=== PATIENT | female | born 2000 | race Caucasian/White ===

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

== ENCOUNTER 2018-01-17 09:32 | Outpatient (CLI) | payer MEDICAID ==
[2018-01-17] MEDS ORDERED: ACETAMINOPHEN 325 MG TABLET PO PRN (09:54)
[2018-01-17 10:30] LABS: APPEARANCE,URINE CLEAR; BILIRUBIN,URINE NEGATIVE (NEGATIVE); COLOR,URINE STRAW; GLUCOSE, URINE NEGATIVE (NEGATIVE); KETONES,URINE NEGATIVE (NEGATIVE); LEUKOCYTE ESTERASE,URINE NEGATIVE (NEGATIVE); NITRITE,URINE NEGATIVE (NEGATIVE); PROTEIN,URINE NEGATIVE (NEGATIVE); URINE SPECIFIC GRAVITY 1.006; UROBILINOGEN,URINE NEGATIVE mg/dL (<2.0)
[2018-01-17 10:49] LABS: URINE AMPHETAMINES SCREEN NEGATIVE; URINE BARBITURATES SCREEN NEGATIVE; URINE BENZODIAZEPINES SCREEN NEGATIVE; URINE COCAINE SCREEN NEGATIVE; URINE MARIJUANA (THC) SCREEN NEGATIVE; URINE METHADONE SCREEN NEGATIVE; URINE PHENCYCLIDINE SCREEN NEGATIVE
[2018-01-17 10:56] LABS: HEMATOCRIT 31.7 % (36.0-47.0); HEMOGLOBIN 11.1 g/dL (12.0-15.5); MEAN CORPUSCULAR HEMOGLOBIN 31.5 pg (27.0-33.4); MEAN CORPUSCULAR HGB CONC 35.2 g/dL (32.0-36.0); MEAN CORPUSCULAR VOLUME 90 fl (80-97); PLATELET COUNT 258 10^3/uL (150-450); RED BLOOD COUNT 3.54 10^6/uL (3.72-5.28); RED CELL DISTRIBUTION WIDTH 12.2 % (11.5-14.0); WHITE BLOOD COUNT 11.1 10^3/uL (4.0-10.5)
[2018-01-17 11:09] LABS: UR PRO/CREAT RATIO RESULT 0.2 mg/mg (0.0-0.2); URINE CREATININE 51.2 mg/dL (16-327); URINE PROTEIN 11.4 mg/dL (<12)
[2018-01-17 11:16] LABS: ALANINE AMINOTRANSFERASE 17 U/L (5-35); ALBUMIN 2.9 g/dL (3.7-5.6); ALKALINE PHOSPHATASE 167 U/L (50-135); ANION GAP 11 (5-19); ASPARTATE AMINO TRANSFERASE 19 U/L (5-30); BILIRUBIN,DIRECT 0.2 mg/dL (0.0-0.4); BILIRUBIN,TOTAL 0.4 mg/dL (0.2-1.3); BLOOD UREA NITROGEN 4 mg/dL (7-20); CALCIUM 8.8 mg/dL (8.4-10.2); CARBON DIOXIDE 18 mmol/L (22-30); CHLORIDE 110 mmol/L (98-107); GLUCOSE 94 mg/dL (75-110); POTASSIUM 3.9 mmol/L (3.6-5.0); SODIUM 139.3 mmol/L (137-145); TOTAL PROTEIN 5.6 g/dL (6.3-8.2); URIC ACID 5.5 mg/dL (2.5-6.2)
--- NOTE | 2018-01-17 13:02 | Non Stress Test Report ---
Non Stress Test Datetime Report Generated by CPN: 01/17/2018 13:02 DEMOGRAPHIC EGA NST: 37.5 INDICATION Indication for Study: Other Indication for Study (NST) Other: PIH workup VITAL SIGNS Temperature - NST: 98.3 Pulse - NST: 94 RESP - NST: 18 NBPSYS NST: 136 NBPDIA NST: 84 MONITORING Monitor Explained: Monitor Explained; Test Explained; Patient Verbalized Understanding; Other Time on Monitor: 01/17/2018 09:43 Time off Monitor: 01/17/2018 12:31 NST Duration: 168 NST INTERVENTIONS NST Interventions: PO Hydration; Reposition Patient Physician Notified NST: J. Montalvo CNM BABY A: [id number] BABY A Movement : Present Contraction Frequency : irritablity FHR Baseline : 130 Accelerations : 15X15 Decelerations : None Variability : Moderate 6-25bpm NST Review: Meets Criteria for Reactive NST NST Review and Verified By : iris hall RN NST Results: Reactive NST REPORT Report Trigger: Send Report
== END 2018-01-17 12:50 | disposition home or self-care (01) ==
LOC: LC 09:32
PROVIDERS: ATTEND Student in an Organized Health Care Education/Training Program
PROC: 4A1HXCZ Monitoring of Products of Conception, Cardiac Rate, External Approach (ICD-10-PCS; principal; 2018-01-17)
DX: O13.3 Gestational [pregnancy-induced] hypertension without significant proteinuria, third trimester (principal); Z3A.37 37 weeks gestation of pregnancy
CPT/HCPCS: 36415; 59025; 80053; 80307; 81001; 82570; 83615; 84156; 84550; 85027

== ENCOUNTER 2018-01-18 11:56 | Inpatient (IN) | payer MEDICAID ==
[2018-01-18] MEDS ORDERED: ACETAMINOPHEN 325 MG TABLET PO ONE (12:24)
[2018-01-18] MEDS ORDERED: ACETAMINOPHEN 325 MG TABLET ONE (12:27)
[2018-01-18] MEDS ORDERED: ACETAMINOPHEN 325 MG TABLET PO PRN (14:19)
[2018-01-18] MEDS ORDERED: DINOPROSTONE 10 MG VAGINAL INSERT.SR PV ONE (14:19)
[2018-01-18] MEDS ORDERED: ZOLPIDEM TARTRATE 5 MG TABLET PO PRN (14:19)
[2018-01-18] MEDS ORDERED: OXYTOCIN/NORMAL SALINE 20 UNIT/1,000 ML RTUINJ IV PRN (14:19)
[2018-01-18] MEDS ORDERED: MAG HYDROX/AL HYDROX/SIMETH SUSP 30 ML UDCUP PO PRN (14:19)
[2018-01-18] MEDS ORDERED: RINGERS SOLUTION,LACTATED 300 ML IV ONE (14:19)
--- NOTE | 2018-01-18 14:19 | Admission Physical ---
Datetime Report Generated by CPN: 01/18/2018 14:18 CURRENT ADMISSION Chief Complaint: Sent from OB Office for Evaluation and Treatment - Please Specify; Other Chief Complaint Other: r/o Pre-eclampsia Indication for Induction: Other Indication for Induction- Other: GHTN Admit Impression : Term, Intrauterine ; Obstetrical Complication Admit Plan: Admit to Unit ALLERGIES Medication Allergies: No Medication Allergies: No Known Allergies (01/18/2018) Latex: No Latex Allergies Food Allergies: N/A Environmental Allergies: N/A OBSTETRICAL HISTORY EDC: 02/02/2018 00:00 : 2 Para: 0 Gestational Diabetes: No Rh Sensitization: No Incompetent Cervix: No JOYCE: No Infertility: No ART Treatment: No Uterine Anomaly: No IUGR: No Hx Previous C/S: No Macrosomia: No Hx Loss/Stillborn: No PIH: No Hx : No Placenta Previa/Abruption: No Depression/PP Depression: Yes PTL/PROM: No Post Hemorrhage: No Current Procedures: Ultrasound Obstetrical History Comments: G1 2016, SAB 6 weeks G2 - Current SEE RECORDS Alcohol: No Marijuana : No Cocaine: No Other Illicit Drugs: No Cigarettes: Never Smoker. 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 Surgery: No Heart Disease: No Hosp/Surgery: Yes Autoimmune Disorder: No Anesthetic Complications: No Kidney Disease: No Abnormal Pap Smear: No Neuro/Epilepsy: No Psychiatric Disorders: No Other Medical Diseases: No Hepatitis/Liver Disease: No Significant Family History: No Varicosities/Phlebitis: No Trauma/Violence : No Thyroid Dysfunction: No Medical History Comments: Surgery on left leg when she was 11 INFECTIOUS HISTORY Gonorrhea: No Genital Herpes: No Chlamydia: No Tuberculosis: No Syphilis: No Hepatitis: No HIV/AIDS Exposure: No Rash or Viral Illness: No HPV: No PHYSICAL EXAM General: Normal HEENT: Normal Neurologic: Normal Thyroid: Normal Heart: Normal Lungs: Normal Breast: Normal Back: Normal Abdomen: Normal Genitourinary Exam: Normal Extremities: Normal DTRs: Normal Pelvic Type: Adequate Vital Signs: Reviewed Details Vital Signs: discussed with Dr Igor VAGINAL EXAM Dilatation: 0 Effacement: 0 Station: -3 MEMBRANES Membranes: Intact FETUS A EGA: 37.6 Monitoring: External US Admit Comment: GHTN with EFW at 10% Will start cervical ripening with Cervidi GBS pending Dr Igor agrees with plan of care INFORMED CONSENT Assignment: Delmy Costa MD Signature: with User ID: Judith : with User ID: Judith
[2018-01-18 15:34] LABS: HEMATOCRIT 32.4 % (36.0-47.0); HEMOGLOBIN 11.4 g/dL (12.0-15.5); MEAN CORPUSCULAR HEMOGLOBIN 31.8 pg (27.0-33.4); MEAN CORPUSCULAR HGB CONC 35.3 g/dL (32.0-36.0); MEAN CORPUSCULAR VOLUME 90 fl (80-97); PLATELET COUNT 292 10^3/uL (150-450); RED BLOOD COUNT 3.59 10^6/uL (3.72-5.28); RED CELL DISTRIBUTION WIDTH 12.3 % (11.5-14.0); WHITE BLOOD COUNT 11.8 10^3/uL (4.0-10.5)
[2018-01-18] MEDS ORDERED: DINOPROSTONE 10 MG VAGINAL INSERT.SR ONE (15:34)
[2018-01-18 15:55] LABS: URINE AMPHETAMINES SCREEN NEGATIVE; URINE BARBITURATES SCREEN NEGATIVE; URINE BENZODIAZEPINES SCREEN NEGATIVE; URINE COCAINE SCREEN NEGATIVE; URINE MARIJUANA (THC) SCREEN NEGATIVE; URINE METHADONE SCREEN NEGATIVE; URINE PHENCYCLIDINE SCREEN NEGATIVE
[2018-01-18] MEDS: RINGERS SOLUTION,LACTATED 1,000 ML IV PRN (20:25)
[2018-01-18] MEDS ORDERED: ZOLPIDEM TARTRATE 5 MG TABLET ONE (20:34)
[2018-01-19] MEDS ORDERED: MISOPROSTOL 0.2 MG TABLET PO ONE ×2 (05:10→05:56)
[2018-01-19] MEDS ORDERED: MISOPROSTOL 0.1 MG TABLET ONE ×3 (05:14→10:34)
[2018-01-19] MEDS ORDERED: PROMETHAZINE HCL INJ 25 MG/1 ML VIAL IV ONE (05:55)
[2018-01-19] MEDS ORDERED: PROMETHAZINE HCL INJ 25 MG/1 ML VIAL ONE (05:58)
[2018-01-19] MEDS ORDERED: ONDANSETRON HCL INJ/PF 4 MG/2 ML SDV ONE (10:56)
[2018-01-19] MEDS ORDERED: ONDANSETRON HCL INJ/PF 4 MG/2 ML SDV IV ONE (11:03)
[2018-01-19] MEDS ORDERED: OXYTOCIN/NORMAL SALINE 20 UNIT/1,000 ML RTUINJ ONE (20:38)
[2018-01-19] MEDS ORDERED: PENICILLIN G-K 5 MILLION UNIT VIAL ONE (21:22)
[2018-01-19] MEDS ORDERED: PENICILLIN G POTASSIUM 5,000,000 UNIT in DEXTROSE 5%-WATER 100 ML IV ONE (21:25)
[2018-01-19] MEDS ORDERED: ZOLPIDEM TARTRATE 5 MG TABLET PO ONE (23:20)
[2018-01-20] MEDS ORDERED: PROMETHAZINE HCL 25 MG TABLET ONE (00:13)
[2018-01-20] MEDS ORDERED: PROMETHAZINE HCL 25 MG TABLET PO PRN (00:13)
[2018-01-20] MEDS ORDERED: ZOLPIDEM TARTRATE 5 MG TABLET ONE (00:25)
[2018-01-20] MEDS ORDERED: PENICILLIN G-K 5 MILLION UNIT VIAL ONE ×3 (01:46→10:19)
[2018-01-20] MEDS: PENICILLIN G POTASSIUM 2,500,000 UNIT in DEXTROSE 5%-WATER 50 ML IV SCH ×4 (01:53→23:43)
[2018-01-20] MEDS: RINGERS SOLUTION,LACTATED 1,000 ML IV PRN (05:44)
--- NOTE | 2018-01-20 07:25 | L&D Progress Notes ---
PROGRESS NOTES Datetime Report Generated by CPN: 01/20/2018 07:24 PROGRESS NOTE Impression: Reactive Non Stress Test Impression Other: Attempting to achieve labor Plan: Continue Present Management Comment: Patient states feeling some contractions. No comlaints. AF VSS Cervix - FT/60/-3 Irregular contractions Contiue Pitocin induction VAGINAL EXAM Dilatation: FT Dilatation: 0 Effacement: 60 Effacement: 0 Station: -3 Station: -3 Contractions: Irregular MEMBRANES Membranes: Intact FETUS A FHR - Baseline: 140 Monitoring: External US Variability: Moderate 6-25bpm Accelerations: 10X10 Decelerations: None : 38.0 Estimated Weight (gm): 3200 SIGNATURE SIGNATURE: ,[id number];,[id number] SIGNATURE: ,[id number] SIGNATURE: ,[id number] Signature: with User ID: [email or web address] : I personally evaluated and examined the patient in conjunction with the MLP and agree with the assessment, treatment plan and disposition.
[2018-01-20 08:04] LABS: ABSOLUTE EOSINOPHILS # (AUTO) 0.2 10^3/uL (0.0-0.6); ABSOLUTE LYMPHOCYTES (AUTO) 1.7 10^3/uL (0.5-4.7); ABSOLUTE MONOCYTES (AUTO) 0.9 10^3/uL (0.1-1.4); ABSOLUTE NEUT (AUTO) 11.6 10^3/uL (1.7-8.2); BASOPHILS % (AUTO) 0.3 % (0-2); EOSINOPHILS % (AUTO) 1.1 % (0-6); HEMATOCRIT 33.1 % (36.0-47.0); HEMOGLOBIN 11.6 g/dL (12.0-15.5); MEAN CORPUSCULAR HEMOGLOBIN 31.3 pg (27.0-33.4); MEAN CORPUSCULAR VOLUME 89 fl (80-97); MONOCYTES % (AUTO) 6.5 % (3-13); PLATELET COUNT 259 10^3/uL (150-450); RED CELL DISTRIBUTION WIDTH 12.6 % (11.5-14.0); SEGMENTED NEUTROPHILS % (AUTO) 80.1 % (42-78); TOTAL CELLS COUNTED % (AUTO) 100 %; WHITE BLOOD COUNT 14.4 10^3/uL (4.0-10.5)
[2018-01-20 08:20] LABS: ALANINE AMINOTRANSFERASE 16 U/L (5-35); ALBUMIN 2.7 g/dL (3.7-5.6); ALKALINE PHOSPHATASE 177 U/L (50-135); ANION GAP 10 (5-19); ASPARTATE AMINO TRANSFERASE 17 U/L (5-30); BILIRUBIN,DIRECT 0.2 mg/dL (0.0-0.4); BILIRUBIN,TOTAL 0.3 mg/dL (0.2-1.3); BLOOD UREA NITROGEN 6 mg/dL (7-20); CARBON DIOXIDE 20 mmol/L (22-30); CHLORIDE 110 mmol/L (98-107); GLUCOSE 69 mg/dL (75-110); POTASSIUM 4.2 mmol/L (3.6-5.0); SODIUM 139.8 mmol/L (137-145); TOTAL PROTEIN 5.5 g/dL (6.3-8.2)
[2018-01-20] MEDS ORDERED: MISOPROSTOL 0.1 MG TABLET ONE (10:08)
[2018-01-20] MEDS ORDERED: HYDRALAZINE HCL INJ/PF 20 MG/1 ML SDV ONE (10:38)
[2018-01-20] MEDS ORDERED: LIDOCAINE 1% INJ-PF (10 MG/ML) 30 ML SDV ONE (13:31)
[2018-01-20] MEDS ORDERED: MISOPROSTOL 0.2 MG TABLET ONE (13:31)
[2018-01-20] MEDS ORDERED: OXYTOCIN/NORMAL SALINE 20 UNIT/1,000 ML RTUINJ ONE ×2 (13:32→19:17)
[2018-01-20] MEDS ORDERED: CITRIC ACID/SODIUM CITRATE ORAL SOLN 15 ML UDCUP ONE (15:49)
[2018-01-20] MEDS ORDERED: CEFAZOLIN 2 GM/D5W RTU 2 GM/50 ML RTUPB IV ONE (15:49)
[2018-01-20] MEDS ORDERED: EPHEDRINE SULFATE INJ 50 MG/1 ML AMPULE ONE (16:32)
[2018-01-20] MEDS ORDERED: BUPIVACAINE HCL/DEX-WATER/PF 15 MG/2 ML AMPULE ONE (16:32)
[2018-01-20] MEDS ORDERED: FENTANYL CITRATE INJ/PF 100 MCG/2 ML AMPUL ONE (16:32)
[2018-01-20] MEDS ORDERED: ONDANSETRON HCL INJ/PF 4 MG/2 ML SDV ONE (16:32)
[2018-01-20] MEDS ORDERED: OXYTOCIN 10 UNIT/ML VIAL ONE (16:32)
[2018-01-20] MEDS ORDERED: MIDAZOLAM 2 MG/2 ML INJ ONE (16:33)
[2018-01-20] MEDS ORDERED: RINGERS SOLUTION,LACTATED 1,000 ML IV PRN (17:59)
[2018-01-20] MEDS ORDERED: MORPHINE SULFATE 10 MG/ML INJ IV PRN (17:59)
[2018-01-20] MEDS ORDERED: ACETAMINOPHEN 325 MG TABLET PO PRN (17:59)
[2018-01-20] MEDS ORDERED: DIPH/PERTUSS(ACELL)/TETANUS VAC/PF 0.5 ML SYR (>=10YO) IM PRN (17:59)
[2018-01-20] MEDS ORDERED: ACETAMINOPHEN 1,000 MG/100 ML RTUPB IV PRN (17:59)
[2018-01-20] MEDS ORDERED: OXYTOCIN/NORMAL SALINE 20 UNIT/1,000 ML RTUINJ IV PRN (17:59)
[2018-01-20] MEDS ORDERED: OXYCODONE-ACETAMINOPHEN 5-325 MG TABLET PO PRN ×2 (17:59)
[2018-01-20] MEDS ORDERED: MEASLES,MUMPS&RUBELLA VACC/PF 0.5 ML VIAL SUBCUT PRN (17:59)
[2018-01-20] MEDS ORDERED: PROMETHAZINE HCL INJ 25 MG/1 ML VIAL IV PRN (17:59)
[2018-01-20] MEDS ORDERED: SIMETHICONE 80 MG TAB.CHEW PO PRN (17:59)
[2018-01-20] MEDS ORDERED: KETOROLAC TROMETHAMINE INJ/PF 30 MG/1 ML SDV ONE (19:07)
--- NOTE | 2018-01-20 19:25 | Warning Signs in Babies ---
VOD Warning Signs Datetime Report Generated by [facility]: 01/20/2018 19:25 VOD#608 -Warning Signs in Babies: Needs to be viewed. (01/20/2018 19:15:Jane Rebolledo RN)
--- NOTE | 2018-01-20 19:39 | Delivery Summary ---
Del Sum A-C Datetime Report Generated by CPN: 01/20/2018 19:39 DELIVERY PERSONNEL DELIVERY PERSONNEL: [id number] Delivery Doctor:: Delmy Costa MD Anesthesiologist:: Dayna Bearden MD ACCOUNT EXECUTIVE:: Checo Bergman CRNA [employer]:: Ave Madonna, RN Police Department Secretary/MANUSCRIPT EDITOR: Bibi Kempaneda, ST Police Department Secretary/MANUSCRIPT EDITOR: Kathleen Kay, ST MATERNAL INFORMATION Delivery Anesthesia: Spinal Medications After Delivery: Pitocin Drip 20 Units/1000ml NSS Maternal Complications: None LABOR SUMMARY EDC: 02/02/2018 00:00 No. Babies in Womb: 1 LABOR INFORMATION Reason for Induction: Gestational Hypertension Cervical Ripening Agents: Cervidil; Cytotec @ Oxytocin: Induction Group B Beta Strep: unknown MEMBRANES Membranes Rupture Method: Artificial STAGES OF LABOR Stage 3 hr: 0 Stage 3 min: 0 VAGINAL DELIVERY Episiotomy: None Laceration Extension #1: N/A CSECTION DELIVERY Primary Indication: Failed Induction CSection Urgency: Non-Scheduled CSection Incidence: Primary Labor: No Labor Elective: Nonelective CSection Incision: Lower Uterine Transverse BABY A INFORMATION Infant Delivery Date/Time: 01/20/2018 17:10 Method of Delivery: Born in Route : No : N/A Forceps: N/A Vacuum Extraction: N/A Shoulder Dystocia : No PRESENTATION/POSITION BABY A Presentation: Unable to Assess Cephalic Presentation: Vertex PLACENTA INFORMATION BABY A Placenta Delivery Time : 01/20/2018 17:10 Placenta Method of Delivery: Manual Removal Placenta Status: Delivered SCORES BABY A Heart Rate 1 min: >100 bpm Resp Effort 1 min: Good Cry Reflex Irritability 1 min: Cough or Sneeze or Pulls Away Muscle Tone 1 min: Active Motion Color 1 min: Blue/Pale Resuscitation Effort 1 min: Tactile Stimulation SCORE 1 MIN: 8 Heart Rate 5 min: >100 bpm Resp Effort 5 min: Good Cry Reflex Irritability 5 min: Cough or Sneeze or Pulls Away Muscle Tone 5 min: Active Motion Color 5 min: Body [place], Extremities Blue Resuscitation Effort 5 min: Tactile Stimulation SCORE 5 MIN: 9 INFANT INFORMATION BABY A Gestational Age at Delivery: 38.1 Gestational Status: Early Term- 37- 38.6 Weeks Outcome : Liveborn Infant Condition : Stable Infant Sex: Female IDENTIFICATION BABY A Infant Verification Date/Time: 01/20/2018 17:24 ID Band Number: [id number] Mother's Name Verified: Yes RN Verifying : Redd Peacock RN and Shin Jones RN WEIGHT/LENGTH BABY A Infant Birthweight (gm): 2895 Weight (lb): 6 Weight (oz): 6 Infant Length (in): 19.00 Length (cm): 48.26 CORD INFORMATION BABY A No. Cord Vessels: 3 Nuchal Cord : N/A Cord Blood Taken: Yes-For Eval (Mom's Blood Type - or O+) Suction: Mouth; Nose ASSESSMENT BABY A Skin to Skin: No SIGNATURES : I was personally available for consultation and serving as supervising physician for the MLP. : I personally evaluated and examined the patient in conjunction with the MLP and agree with the assessment, treatment plan and disposition.
--- NOTE | 2018-01-20 22:41 | OPERATIVE REPORT E ---
Operative Report NAME: DIANA TURK : 2000 AGE: 17Y DATE OF SURGERY: ROOM: 222 PREOPERATIVE DIAGNOSIS: 1. INTRAUTERINE AT 38 WEEKS AND 1 DAY. 2. UNCONTROLLED GESTATIONAL HYPERTENSION. 3. FAILED INDUCTION. POSTOPERATIVE DIAGNOSIS: 1. INTRAUTERINE AT 38 WEEKS AND 1 DAY. 2. UNCONTROLLED GESTATIONAL HYPERTENSION. 3. FAILED INDUCTION. SURGEON: URIEL ROBERSON M.D. ANESTHESIA: Spinal by Dayna Bearden M.D. FINDINGS: Female in cephalic presentation with of 9/9. ESTIMATED BLOOD LOSS: 650 mL. SPECIMENS REMOVED: None. PROCEDURE: Low transverse hysterotomy section. PROCEDURE IN DETAIL: The patient was taken to the operating room, prepared and draped in a normal sterile fashion in the supine position with a leftward tilt. A transverse skin incision was made with a scalpel and carried through to the underlying layer of fascia with the same scalpel. The fascia was incised in the midline and extended laterally with Ravi. The fascia was dissected from the rectus muscles sharply with Ravi and the rectus muscle was divided, peritoneal cavity was entered bluntly with good visualization of the bladder and the uterus. A bladder blade was inserted. The hysterotomy was nicked with a scalpel and extended laterally with surgeon finger fracture. The was then delivered atraumatically. The nose and mouth were suctioned with a suction bulb. The cord was clamped and cut and the infant was handed off to the awaiting survey questionnaire designer. The cord blood was collected. The placenta was removed manually. The uterus was exteriorized and cleared of clots and debris. The hysterotomy was closed with 0 Monocryl in a running locked fashion. A second layer of the same suture was used to imbricate to ensure hemostasis. The uterus was returned to the abdomen. The peritoneal cavity was cleared of clots and debris. The rectus muscle and peritoneum were reapproximated with a mattress stitch of 2-0 chromic. The fascia was closed with 0 Vicryl. The subcutaneous layer was closed with plain catgut. The skin was closed with 4-0 Vicryl. The patient tolerated the procedure well. Sponge, lap, and needle counts were correct x2, and the patient was taken to recovery in stable condition. DICTATING PHYSICIAN: URIEL ROBERSON M.D. [id number] PHY#: [id number] ID: [id number] JOB#: [id number] ACCT: [id number] cc:URIEL ROBERSON M.D. >
[2018-01-20] MEDS: DOCUSATE SODIUM 100 MG CAPSULE PO SCH (23:42)
[2018-01-20] MEDS: KETOROLAC TROMETHAMINE INJ/PF 30 MG/1 ML SDV IV SCH (23:42)
[2018-01-20] MEDS: IBUPROFEN 800 MG TABLET PO SCH (23:42)
[2018-01-21] MEDS: IBUPROFEN 800 MG TABLET PO SCH ×4 (04:51→17:27)
[2018-01-21] MEDS: KETOROLAC TROMETHAMINE INJ/PF 30 MG/1 ML SDV IV SCH ×2 (05:05→15:05)
[2018-01-21] MEDS: RINGERS SOLUTION,LACTATED 1,000 ML IV PRN (05:05)
[2018-01-21 07:05] LABS: HEMATOCRIT 29.8 % (36.0-47.0); HEMOGLOBIN 10.4 g/dL (12.0-15.5); MEAN CORPUSCULAR HEMOGLOBIN 31.3 pg (27.0-33.4); MEAN CORPUSCULAR HGB CONC 34.8 g/dL (32.0-36.0); MEAN CORPUSCULAR VOLUME 90 fl (80-97); PLATELET COUNT 227 10^3/uL (150-450); RED BLOOD COUNT 3.32 10^6/uL (3.72-5.28); RED CELL DISTRIBUTION WIDTH 12.3 % (11.5-14.0); WHITE BLOOD COUNT 11.2 10^3/uL (4.0-10.5)
[2018-01-21] MEDS: PRENATAL VITAMIN W DHA CAPSULE PO SCH (10:32)
[2018-01-21] MEDS: DOCUSATE SODIUM 100 MG CAPSULE PO SCH ×2 (10:32→17:33)
--- NOTE | 2018-01-21 11:37 | PDOC PROGRESS REPORT ---
Subjective-OB Progress Note for:: 01/21/18 Subjective: Sitting up in bed, feeling ok except incisional discomfort, family at BS, baby in room, passing gas, OOB voiding Physical Exam (OB) Vital Signs: Temp Pulse Resp BP Pulse Ox 98.3 F 87 17 140/81 H 98 01/21/18 08:00 01/21/18 07:58 01/21/18 07:58 01/21/18 07:58 01/21/18 07:58 Intake & Output 01/20/18 01/21/18 01/22/18 06:59 06:59 06:59 Intake Total 374 1000 Output Total 1000 Balance 374 0 - PIH/Pre-Eclampsia DTR's: 1 + Clonus: Negative Headache: Absent Epigastric Pain: No Visual Changes: No - Dressing Removed: No Incision: Well Approximated Closure Type: Sutures - Lochia Lochia Amount: Small 10-25 ml Lochia Color: Rubra/Red - Abdomen Description: Tender Hernia Present: No Fundal Description: Firm, Midline Fundal Height: u/u - u/2 Objective-Diagnostic Laboratory: 01/21/18 06:23 01/20/18 07:25 01/21/18 06:23 WBC 11.2 H RBC 3.32 L Hgb 10.4 L Hct 29.8 L MCV 90 MCH 31.3 MCHC 34.8 RDW 12.3 Plt Count 227 Assessment and Plan(PN) - Assessment and Plan (1) IUGR (intrauterine growth retardation), delivered, current hospitalization Is this a current diagnosis for this admission?: Yes (2) Gestational hypertension without significant proteinuria Qualifiers: Trimester: third trimester Qualified Code(s): O13.3 - Gestational [ -induced] hypertension without significant proteinuria, third trimester Is this a current diagnosis for this admission?: Yes (3) Delivery by section of full-term Is this a current diagnosis for this admission?: Yes - Time Spent with Patient Medications reviewed and adjusted accordingly: Yes - Disposition Anticipated Discharge: Home Within: within 24 hours
--- NOTE | 2018-01-21 15:56 | PDOC PROGRESS REPORT ---
Subjective-OB Progress Note for:: 01/21/18 Subjective: no c/o Physical Exam (OB) Vital Signs: Temp Pulse Resp BP Pulse Ox 98.3 F 87 17 140/81 H 98 01/21/18 08:00 01/21/18 07:58 01/21/18 07:58 01/21/18 07:58 01/21/18 07:58 Intake & Output 01/20/18 01/21/18 01/22/18 06:59 06:59 06:59 Intake Total 374 1000 400 Output Total 1000 800 Balance 374 0 -400 - PIH/Pre-Eclampsia DTR's: 1 + Clonus: Negative Headache: Absent Epigastric Pain: No Visual Changes: No - Dressing Removed: No Incision: Well Approximated Closure Type: Sutures - Lochia Lochia Amount: Small 10-25 ml Lochia Color: Rubra/Red - Abdomen Description: Tender Hernia Present: No Fundal Description: Firm, Midline Fundal Height: u/u - u/2 Objective-Diagnostic Laboratory: 01/21/18 06:23 01/20/18 07:25 01/21/18 06:23 WBC 11.2 H RBC 3.32 L Hgb 10.4 L Hct 29.8 L MCV 90 MCH 31.3 MCHC 34.8 RDW 12.3 Plt Count 227 Assessment and Plan(PN) - Assessment and Plan (1) IUGR (intrauterine growth retardation), delivered, current hospitalization Is this a current diagnosis for this admission?: Yes (2) Gestational hypertension without significant proteinuria Qualifiers: Trimester: third trimester Qualified Code(s): O13.3 - Gestational [ -induced] hypertension without significant proteinuria, third trimester Is this a current diagnosis for this admission?: Yes (3) Delivery by section of full-term infant Is this a current diagnosis for this admission?: Yes - Time Spent with Patient Medications reviewed and adjusted accordingly: Yes - Disposition Anticipated Discharge: Home Within: within 24 hours - TSH drawn in office last week was 11.9, start synthroid 50 mcg and repeat TSH in 6 weeks
[2018-01-21] MEDS: PENICILLIN G POTASSIUM 2,500,000 UNIT in DEXTROSE 5%-WATER 50 ML IV SCH (16:20)
[2018-01-21] MEDS: LEVOTHYROXINE SODIUM 0.05 MG TABLET PO SCH (16:57)
[2018-01-22] MEDS: IBUPROFEN 800 MG TABLET PO SCH ×3 (06:08→11:45)
[2018-01-22] MEDS: LEVOTHYROXINE SODIUM 0.05 MG TABLET PO SCH (06:11)
[2018-01-22] MEDS: PRENATAL VITAMIN W DHA CAPSULE PO SCH (10:02)
[2018-01-22] MEDS: DOCUSATE SODIUM 100 MG CAPSULE PO SCH (10:02)
[2018-01-22] MEDS ORDERED: NIFEDIPINE 30 MG TAB.ER.24 PO ONE (10:49)
[2018-01-22 12:51] VITALS: BP 143/100
--- NOTE | 2018-01-22 13:11 | PDOC DISCHARGE SUMMARY ---
Final Diagnosis Discharge Date: 01/22/18 - Final Diagnosis (1) Hypothyroidism affecting Is this a current diagnosis for this admission?: Yes (2) Acute blood loss anemia Is this a current diagnosis for this admission?: Yes (3) IUGR (intrauterine growth retardation), delivered, current hospitalization Is this a current diagnosis for this admission?: Yes (4) Gestational hypertension without significant proteinuria Is this a current diagnosis for this admission?: Yes (5) Delivery by section of full-term Is this a current diagnosis for this admission?: Yes Discharge Data - Discharge Medication Prescriptions: Oxycodone HCl/Acetaminophen [Percocet 5-325 mg Tablet] 1 tab PO Q4HP PRN #20 tablet PRN Reason: For Pain Scale 3-5 Ibuprofen [Motrin 800 mg Tablet] 800 mg PO Q8HP PRN #60 tablet PRN Reason: Abdominal Cramping Docusate Sodium [Colace 100 mg Capsule] 100 mg PO BID #60 capsule Levothyroxine Sodium [Synthroid 0.05 mg Tablet] 0.05 mg PO Q6AM #60 tablet Nifedipine [Procardia Xl 30 mg Tablet] 30 mg PO DAILY #30 tab.er.24 Home Medications: No122/Iron/Folic Acid [ Multi Tablet] 1 tab PO DAILY 12/06/17 Docusate Sodium [Colace 100 mg Capsule] 100 mg PO BID #60 capsule 01/22/18 Ibuprofen [Motrin 800 mg Tablet] 800 mg PO Q8HP PRN #60 tablet 01/22/18 Levothyroxine Sodium [Synthroid 0.05 mg Tablet] 0.05 mg PO Q6AM #60 tablet 01/22 Nifedipine [Procardia Xl 30 mg Tablet] 30 mg PO DAILY #30 tab.er.24 01/22/18 Oxycodone HCl/Acetaminophen [Percocet 5-325 mg Tablet] 1 tab PO Q4HP PRN #20 tablet 01/22/18 Reason(s) for Admission: Induction of Labor Procedures: NST, Ultrasound Intrapartum Procedure(s): : Low Cervical, Transverse - Diagnosis Test Laboratory: Temp Pulse Resp BP Pulse Ox 98.0 F 83 17 147/99 H 98 01/22/18 08:01 01/22/18 08:01 01/22/18 08:01 01/22/18 08:01 01/22/18 08:01 01/18/18 01/18/18 01/20/18 12:03 15:20 07:25 RBC 3.59 L 3.70 L Hgb 11.4 L 11.6 L Hct 32.4 L 33.1 L Urine Opiates Screen NEGATIVE 01/21/18 06:23 RBC 3.32 L Hgb 10.4 L Hct 29.8 L Urine Opiates Screen - Discharge information/Instructions Discharge Activity: Activity As Tolerated, Balance Activity w/Rest, No Driving, No Lifting Over 10 Pounds, Pelvic Rest, No tub bath, Walk Frequently Discharge Diet: As Tolerated Disposition: HOME, SELF-CARE Follow up with: [facility]: [facility], Days - bp check
== END 2018-01-22 15:45 | disposition home or self-care (01) | DRG 765 ==
LOC: LC 11:56 → LR 14:13 → 2S 01-20 19:50
PROVIDERS: ADMIT Obstetrics & Gynecology; ATTEND Obstetrics & Gynecology
PROC: 4A1HXCZ Monitoring of Products of Conception, Cardiac Rate, External Approach (ICD-10-PCS; 2018-01-18)
PROC: 3E033VJ Introduction of Other Hormone into Peripheral Vein, Percutaneous Approach (ICD-10-PCS; 2018-01-19)
PROC: 3E0P7VZ Introduction of Hormone into Female Reproductive, Via Natural or Artificial Opening (ICD-10-PCS; 2018-01-19)
PROC: 10907ZC Drainage of Amniotic Fluid, Therapeutic from Products of Conception, Via Natural or Artificial Opening (ICD-10-PCS; 2018-01-19)
PROC: 10D00Z1 Extraction of Products of Conception, Low, Open Approach (ICD-10-PCS; principal; 2018-01-20)
DX: O13.4 Gestational [pregnancy-induced] hypertension without significant proteinuria, complicating childbirth (principal); D62 Acute posthemorrhagic anemia; O36.5930 Maternal care for other known or suspected poor fetal growth, third trimester, not applicable or unspecified; O99.284 Endocrine, nutritional and metabolic diseases complicating childbirth; E03.9 Hypothyroidism, unspecified; O99.02 Anemia complicating childbirth; O61.9 Failed induction of labor, unspecified; Z3A.38 38 weeks gestation of pregnancy; Z37.0 Single live birth
CPT/HCPCS: 1961; 36415; 80053; 80307; 83615; 84550; 85025; 85027; 86592; 86850; 86900; 86901; 90715; 94799; J0131; J0360; J0690; J1885; J2250; J2270; J2405; J2540; J2550; J2590; J3010; J3490; J7120